=== PATIENT | male | born 1975 | race Caucasian/White ===

== ENCOUNTER 2019-03-08 19:55 | Emergency (ER) | payer OTHER ==
[~2019-03-08] VITALS: Ht 175.3 cm; Wt 77.1 kg
[2019-03-08 20:41] LABS: HEMATOCRIT 39.1 % (42.0-52.0); HEMOGLOBIN 13.3 gm/dL (14.0-18.0); MCHC 34.1 g/dL (28.0-37.0); MCV 88.2 fL (80.0-100.0); PLATELET COUNT 138 thou/uL (150-400); RBC 4.43 mil/uL (4.50-6.00); RDW 14.2 % (10.5-14.5)
[2019-03-08 20:49] LABS: CALCIUM 8.8 mg/dL (8.5-10.1); CREATININE 0.9 mg/dL (0.7-1.3); POTASSIUM 3.7 mmol/L (3.5-5.1)
[2019-03-08 21:10] LABS: ABSOLUTE NEUTROPHILS 2.8 thou/uL (1.4-8.2)
[2019-03-08 21:11] LABS: ANISOCYTOSIS 1+; PLATELET ESTIMATE DECREASED; POLYCHROMASIA 1+
[2019-03-08 22:00] VITALS: BP 138/86
[2019-03-08] MEDS ORDERED: IBUPROFEN 600600 M1 PO (22:27)
[2019-03-08] MEDS ORDERED: TIZANIDINE HCL4 MG PO (22:27)
== END 2019-03-08 23:15 | disposition home or self-care (01) ==
LOC: ER 19:55
PROVIDERS: Nurse Practitioner
DX: M54.2 Cervicalgia (principal); G44.209 Tension-type headache, unspecified, not intractable; J45.909 Unspecified asthma, uncomplicated; I10 Essential (primary) hypertension; G43.909 Migraine, unspecified, not intractable, without status migrainosus